=== PATIENT | female | born 1985 | race Caucasian/White ===

== ENCOUNTER 2024-12-18 11:44 | Outpatient (REF) | payer OTHER, SELFPAY ==
--- NOTE | ~2024-12-18 | XR_ITS ---
EXAMINATION: XR CERVICAL SPINE CLINICAL INFORMATION: NECK PAIN COMPARISON: None available. TECHNIQUE: 3 views of the cervical spine were obtained. FINDINGS: Endocervical junction is intact. No acute cortical disruption or gross malalignment. No lytic or blastic lesions. Upper airway is patent. XR/XR cervical spine 3V IMPRESSION: No acute fracture or listhesis. Negative exam. Electronically signed by: Hunter Skelton MD 12/18/2024 03:49 PM EST
[2024-12-18 12:40] LABS: MANUAL DIFF FLAG NO
--- OUTSIDE RECORDS SUMMARY | 2024-12-18 13:04 | XMS_ITS ---
Author Name [facility] Organization Unknown History of Medication Use Medication Directions Dispensed Refills Start Date End Date Stat nitrofurantoin, macrocrystal-monohyd rate, (MACROBID) 100 MG capsule Take 1 capsule (100 mg total) by mouth daily. 11/18/2020 active Lo Loestrin Fe 1 mg-10 mcg (24)/10 mcg (2) tablet Take 1 tablet every day by oral route. 03/20/2019 06/24/2020 completed Tegretol XR 200 mg tablet,extended release four times a day active omeprazole 10 mg capsule,delayed release Take 2 capsules every day by oral route. 07/24/2019 completed amitriptyline 75 mg tablet Take 1 tablet every day by oral route. 10/11/2023 active Macrodantin 50 mg capsule take one capsule before and after intercourse. 11/17/2022 active betamethasone valerate 0.1 % topical ointment apply a pea sized amount to vulva as shown MWF 03/04/2018 07/24/2019 completed Allergies Allergen Reaction Severity Comment Documented Date Source Statu s SUBSTANCE WITH SULFONAMIDE STRUCTURE AND ANTIBACTERIAL MECHANISM OF ACTION (SUBSTANCE) hives moderate [facility] NO KNOWN ALLERGY (SITUATION) 09/29/2013 [facility] completed BACTRIM Hives [facility] Problems Problem Status Onset Date Problem Type Date of Resoluti on Source Herpes simplex type 1 infection active 2018-04-25 ProblemAct [facility] Migraine active 2013-04-18 ProblemAct [facility] Vulvodynia active 2013-04-18 ProblemAct [facility] Anemia active 2024-09-18 ProblemAct [facility] Irritable bowel syndrome active 2013-04-18 ProblemAct [facility] 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
--- OUTSIDE RECORDS SUMMARY | 2024-12-18 13:04 | XMS_ITS | Data Portability ---
Author Organization [place] - [facility], [facility] Address [id number] [place] [address] Care Team Providers Care Chief Underwriter Name Role Phone SHASHI MUNIZ Primary Care Provider DEE CALIXTO Referring Provider Assessment No assessment recorded. Plan of Treatment Reminders Order Date Submit Date Provider Last Modified By Organization Details Last Modified Time Details Appointments ANNUAL NEWS CAMERAMAN 20 2024 10:30A M Sheila Leger MD Not available Not available Not available Lab [facility]ell wet prep 2022 023 [email or web address] In-Office Order, Internal Use Only DO Not Attach Compendium DO Not Attach Compendium, Do Not Delete/merge, [id number] 09/06/2023 14:41:42 wet mount, vaginal 2022 023 [email or web address] In-Office Order, Internal Use Only DO Not Attach Compendium DO Not Attach Compendium, Do Not Delete/merge, [id number] 09/06/2023 14:41:42 whiff test, vaginal fluid 2022 023 [email or web address] In-Office Order, Internal Use Only DO Not Attach Compendium DO Not Attach Compendium, Do Not Delete/merge, [id number] 09/06/2023 14:41:42 ph, vaginal fluid 2022 023 [email or web address] In-Office Order, Internal Use Only DO Not Attach Compendium DO Not Attach Compendium, Do Not Delete/merge, [id number] 09/06/2023 14:41:42 urinalysi s, dipstick 2022 023 [email or web address] In-Office Order, Internal Use Only DO Not Attach Compendium DO Not Attach Compendium, Do Not Delete/merge, [id number] 09/06/2023 14:41:42 cornell wet prep 2022 023 [email or web address] In-Office Order, Internal Use Only DO Not Attach Compendium DO Not Attach Compendium, Do Not Delete/merge, [id number] 10/11/2023 12:05:01 wet mount, vaginal 2022 023 [email or web address] In-Office Order, Internal Use Only DO Not Attach Compendium DO Not Attach Compendium, Do Not Delete/merge, [id number] 10/11/2023 12:04:58 whiff test, vaginal fluid 2022 023 rberke In-Office Order, Internal Use Only DO Not Attach Compendium DO Not Attach Compendium, Do Not Delete/merge, [id number] 10/11/2023 12:04:58 ph, vaginal fluid 2022 023 [email or web address] In-Office Order, Internal Use Only DO Not Attach Compendium DO Not Attach Compendium, Do Not Delete/merge, [id number] 10/11/2023 12:04:58 cornell wet prep 2022 023 [email or web address] In-Office Order, Internal Use Only DO Not Attach Compendium DO Not Attach Compendium, Do Not Delete/merge, [id number] 10/25/2023 12:18:31 wet mount, vaginal 2022 023 [email or web address] In-Office Order, Internal Use Only DO Not Attach Compendium DO Not Attach Compendium, Do Not Delete/merge, [id number] 10/25/2023 12:18:33 whiff test, vaginal fluid 2022 023 [email or web address] In-Office Order, Internal Use Only DO Not Attach Compendium DO Not Attach Compendium, Do Not Delete/merge, [id number] 10/25/2023 12:18:34 ph, vaginal fluid 2022 023 [email or web address] In-Office Order, Internal Use Only DO Not Attach Compendium DO Not Attach Compendium, Do Not Delete/merge, [id number] 10/25/2023 12:18:36 cornell wet prep 2023 024 [email or web address] In-Office Order, Internal Use Only DO Not Attach Compendium DO Not Attach Compendium, Do Not Delete/merge, [id number] 02/28/2024 12:36:42 wet mount, vaginal 2023 024 [email or web address] In-Office Order, Internal Use Only DO Not Attach Compendium DO Not Attach Compendium, Do Not Delete/merge, [id number] 02/28/2024 12:36:37 whiff test, vaginal fluid 2023 024 rberke In-Office Order, Internal Use Only DO Not Attach Compendium DO Not Attach Compendium, Do Not Delete/merge, [id number] 02/28/2024 12:36:36 ph, vaginal fluid 2023 024 [email or web address] In-Office Order, Internal Use Only DO Not Attach Compendium DO Not Attach Compendium, Do Not Delete/merge, [id number] 02/28/2024 12:36:37 urinalysi s, dipstick 2023 024 [email or web address] In-Office Order, Internal Use Only DO Not Attach Compendium DO Not Attach Compendium, Do Not Delete/merge, [id number] 09/18/2024 11:14:06 Referral pelvic floor therapy referral 2022 023 [facility], [address] [place] [address], [place], [address], 11/25/2023 16:29:05 Procedures None recorded. Surgeries None recorded. Imaging None recorded. Medication Orders fluconazo le 150 mg tablet 2022 023 [facility] #[id number], [address] [place], [address], 10/11/2023 11:14:47 amitripty line 10 mg tablet 2022 023 [facility]arm[facility] #[id number], [address] [place], [address], 10/25/2023 11:10:11 amitripty line 50 mg tablet 2022 023 [id number] [address] [place], [address], 10/25/2023 11:10:12 [facility] line 75 [id number] [address] [place], [address], 02/28/2024 12:36:04 amitripty line 10 mg tablet 2023 024 [id number] [address] [place], [address], 02/28/2024 12:36:39 amitripty line 50 mg tablet 2023 024 [id number] [address] [place], [address], 02/28/2024 12:36:39 amitripty line 10 mg tablet 2023 024 [id number] [address] [place], [address], 09/18/2024 11:14:11 Patient TargetsNo targets recorded. Patient Instructions Encounter Date Encounter Id Patient Instructions Last Modified By Organization Details Last Modified Time 09/06/2023 [id number] vulvar pain: car e instructions rberke Not available 09/06/2023 14:41:42 02/28/2024 [id number] vulvar pain: car e instructions rberke Not available 02/28/2024 12:36:36 09/18/2024 [id number] vulvar pain: car e instructions rberke Not available 09/18/2024 11:14:06 heavy menstrual periods: care instructions rberke Not available 09/18/2024 11:14:06 Reason for Referral Pelvic Floor Therapy Referra l for Muscular hypertonicity Referring Physician: Zander Schwartz, [facility] ADMINISTRATOR, Encounter Date: 10/25/2023 Results Created Date Observation Date Name Description Value Unit Range Abnormal Flag Note LastModifiedBy Organization Detail LastModifiedTime 09/06/2009/06/2023 ph, vagin al fluid Vaginal pH 4.5 Not Available In-Offi ce Order Internal Use Only DO Not Attach Compendium DO Not Attach Compendium, Do Not Delete/merge, [id number] 09/06/2023 14:35:55 09/06/2009/06/2023 whiff test, vagin al fluid Result negati ve Not Available In-Office Order Internal Use Only DO Not Attach Compendium DO Not Attach Compendium, Do Not Delete/merge, [id number] 09/06/2023 14:35:55 09/06/2009/06/2023 wet mount , vagin al Wet Mount, Vaginal Normal epithe lial cells. rare wbcs. Not Available In-Office Order Internal Use Only DO Not Attach Compendium DO Not Attach Compendium, Do Not Delete/merge, [id number] 09/06/2023 14:35:54 09/06/2009/06/2023 cornell wet prep Yeast Presen t Not Available In-Office Order Internal Use Only DO Not Attach Compendium DO Not Attach Compendium, Do Not Delete/merge, [id number] 09/06/2023 14:35:54 09/06/2009/06/2023 urina lysis , dipst ick Interpretati on negati ve Not Available In-Office Order Internal Use Only DO Not Attach Compendium DO Not Attach Compendium, Do Not Delete/merge, [id number] 09/06/2023 14:07:37 09/06/2009/06/2023 urina lysis , dipst ick Leukocytes Negati ve Not Available In-Office Order Internal Use Only DO Not Attach Compendium DO Not Attach Compendium, Do Not Delete/merge, [id number] 09/06/2023 14:07:37 09/06/2009/06/2023 urina lysis , dipst ick Nitrite negati ve Not Available In-Office Order Internal Use Only DO Not Attach Compendium DO Not Attach Compendium, Do Not Delete/merge, [id number] 09/06/2023 14:07:37 09/06/2009/06/2023 urina lysis , dipst ick Urobilinogen Normal : 0.2 mg/dl Not Available In-Office Order Internal Use Only DO Not Attach Compendium DO Not Attach Compendium, Do Not Delete/merge, [id number] 09/06/2023 14:07:37 09/06/2009/06/2023 urina lysis , dipst ick Protein Negati ve Not Available In-Office Order Internal Use Only DO Not Attach Compendium DO Not Attach Compendium, Do Not Delete/merge, [id number] 09/06/2023 14:07:37 09/06/2009/06/2023 urina lysis , dipst ick pH 5.0 Not Available In-Office Order Internal Use Only DO Not Attach Compendium DO Not Attach Compendium, Do Not Delete/merge, [id number] 09/06/2023 14:07:37 09/06/2009/06/2023 urina lysis , dipst ick Blood Negati ve Not Available In-Office Order Internal Use Only DO Not Attach Compendium DO Not Attach Compendium, Do Not Delete/merge, [id number] 09/06/2023 14:07:37 09/06/2009/06/2023 urina lysis , dipst ick Specific [place] 1.000 Not Available In-Off ice Order Internal Use Only DO Not Attach Compendium DO Not Attach Compendium, Do Not Delete/merge, [id number] 09/06/2023 14:07:37 09/06/2009/06/2023 urina lysis , dipst ick Ketone Negati ve Not Available In-Office Order Internal Use Only DO Not Attach Compendium DO Not Attach Compendium, Do Not Delete/merge, [id number] 09/06/2023 14:07:37 09/06/2009/06/2023 urina lysis , dipst ick Bilirubin Negati ve Not Available In-Office Order Internal Use Only DO Not Attach Compendium DO Not Attach Compendium, Do Not Delete/merge, [id number] 09/06/2023 14:07:37 09/06/2009/06/2023 urina lysis , dipst ick Glucose Negati ve Not Available In-Office Order Internal Use Only DO Not Attach Compendium DO Not Attach Compendium, Do Not Delete/merge, [id number] 09/06/2023 14:07:37 09/06/2009/06/2023 urina lysis , dipst ick Appearance Clear Not Available In-Offi ce Order Internal Use Only DO Not Attach Compendium DO Not Attach Compendium, Do Not Delete/merge, [id number] 09/06/2023 14:07:37 09/06/2009/06/2023 urina lysis , dipst ick Color Yellow Not Available In-Office Order Internal Use Only DO Not Attach Compendium DO Not Attach Compendium, Do Not Delete/merge, [id number] 09/06/2023 14:07:37 10/11/2010/11/2023 ph, vagin al fluid Vaginal pH 4.5 Not Available In-Offi ce Order Internal Use Only DO Not Attach Compendium DO Not Attach Compendium, Do Not Delete/merge, [id number] 10/11/2023 11:56:30 10/11/2010/11/2023 whiff test, vagin al fluid Result negati ve Not Available In-Office Order Internal Use Only DO Not Attach Compendium DO Not Attach Compendium, Do Not Delete/merge, [id number] 10/11/2023 11:56:29 10/11/2010/11/2023 wet mount , vagin al Wet Mount, Vaginal normal lactob acilli and normal epithe lial cells. Not Available In-Office Order Internal Use Only DO Not Attach Compendium DO Not Attach Compendium, Do Not Delete/merge, [id number] 10/11/2023 11:56:27 10/11/2010/11/2023 cornell wet prep Yeast Absent Not Available In-Office Order Internal Use Only DO Not Attach Compendium DO Not Attach Compendium, Do Not Delete/merge, [id number] 10/11/2023 11:56:26 10/25/2010/25/2023 ph, vagin al fluid Other 4.0 Not Available In-Office Order Internal Use Only DO Not Attach Compendium DO Not Attach Compendium, Do Not Delete/merge, [id number] 10/25/2023 12:02:33 10/25/20 23 10/25/2023 whiff test, vagin al fluid Result negati ve Not Available In-Office Order Internal Use Only DO Not Attach Compendium DO Not Attach Compendium, Do Not Delete/merge, [id number] 10/25/2023 12:02:32 10/25/20 23 10/25/2023 wet mount , vagin al Wet Mount, Vaginal WS with normal lactob acilli and normal epithe lial cells. Not Available In-Office Order Internal Use Only DO Not Attach Compendium DO Not Attach Compendium, Do Not Delete/merge, [id number] 10/25/2023 12:02:32 10/25/20 23 10/25/2023 cornell wet prep Hyphae Absent Not Available In-Office Order Internal Use Only DO Not Attach Compendium DO Not Attach Compendium, Do Not Delete/merge, [id number] 10/25/2023 12:02:31 10/25/20 23 10/25/2023 cornell wet prep Yeast Absent Not Available In-Office Order Internal Use Only DO Not Attach Compendium DO Not Attach Compendium, Do Not Delete/merge, [id number] 10/25/2023 12:02:31 02/28/20 24 02/28/2024 ph, vagin al fluid Vaginal pH 4.5 Not Available In-Offi ce Order Internal Use Only DO Not Attach Compendium DO Not Attach Compendium, Do Not Delete/merge, [id number] 02/28/2024 12:30:36 02/28/20 24 02/28/2024 whiff test, vagin al fluid Result negati ve Not Available In-Office Order Internal Use Only DO Not Attach Compendium DO Not Attach Compendium, Do Not Delete/merge, [id number] 02/28/2024 12:30:36 02/28/20 24 02/28/2024 wet mount , vagin al Wet Mount, Vaginal normal lactob acilli and normal epithe lial cells. Not Available In-Office Order Internal Use Only DO Not Attach Compendium DO Not Attach Compendium, Do Not Delete/merge, [id number] 02/28/2024 12:30:36 02/28/20 24 02/28/2024 cornell wet prep Yeast Absent Not Available In-Office Order Internal Use Only DO Not Attach Compendium DO Not Attach Compendium, Do Not Delete/merge, [id number] 02/28/2024 12:30:36 09/18/20 24 09/18/2024 urina lysis , dipst ick Interpretati on negati ve Not Available In-Office Order Internal Use Only DO Not Attach Compendium DO Not Attach Compendium, Do Not Delete/merge, [id number] 09/18/2024 10:29:48 09/18/20 24 09/18/2024 urina lysis , dipst ick Leukocytes Negati ve Not Available In-Office Order Internal Use Only DO Not Attach Compendium DO Not Attach Compendium, Do Not Delete/merge, 09/18/2024 10:29:48 09/18/20 24 09/18/2024 urina lysis , dipst ick Nitrite negati ve Not Available In-Office Order Internal Use Only DO Not Attach Compendium DO Not Attach Compendium, Do Not Delete/merge, [id number] 09/18/2024 10:29:48 09/18/20 24 09/18/2024 urina lysis , dipst ick Urobilinogen Normal : 0.2 mg/dl Not Available In-Office Order Internal Use Only DO Not Attach Compendium DO Not Attach Compendium, Do Not Delete/merge, [id number] 09/18/2024 10:29:48 09/18/20 24 09/18/2024 urina lysis , dipst ick Protein Negati ve Not Available In-Office Order Internal Use Only DO Not Attach Compendium DO Not Attach Compendium, Do Not Delete/merge, [id number] 09/18/2024 10:29:48 09/18/20 24 09/18/2024 urina lysis , dipst ick pH 5.0 Not Available In-Office Order Internal Use Only DO Not Attach Compendium DO Not Attach Compendium, Do Not Delete/merge, [id number] 09/18/2024 10:29:48 09/18/20 24 09/18/2024 urina lysis , dipst ick Blood Negati ve Not Available In-Office Order Internal Use Only DO Not Attach Compendium DO Not Attach Compendium, Do Not Delete/merge, [id number] 09/18/2024 10:29:48 09/18/20 24 09/18/2024 urina lysis , dipst ick Specific [place] 1.000 Not Available In-Off ice Order Internal Use Only DO Not Attach Compendium DO Not Attach Compendium, Do Not Delete/merge, [id number] 09/18/2024 10:29:48 09/18/20 24 09/18/2024 urina lysis , dipst ick Ketone Negati ve Not Available In-Office Order Internal Use Only DO Not Attach Compendium DO Not Attach Compendium, Do Not Delete/merge, [id number] 09/18/2024 10:29:48 09/18/20 24 09/18/2024 urina lysis , dipst ick Bilirubin Negati ve Not Available In-Office Order Internal Use Only DO Not Attach Compendium DO Not Attach Compendium, Do Not Delete/merge, [id number] 09/18/2024 10:29:48 09/18/20 24 09/18/2024 urina lysis , dipst ick Glucose Negati ve Not Available In-Office Order Internal Use Only DO Not Attach Compendium DO Not Attach Compendium, Do Not Delete/merge, [id number] 09/18/2024 10:29:48 09/18/20 24 09/18/2024 urina lysis , dipst ick Appearance Clear Not Available In-Offi ce Order Internal Use Only DO Not Attach Compendium DO Not Attach Compendium, Do Not Delete/merge, [id number] 09/18/2024 10:29:48 09/18/20 24 09/18/2024 urina lysis , dipst ick Color Yellow Not Available In-Office Order Internal Use Only DO Not Attach Compendium DO Not Attach Compendium, Do Not Delete/merge, [id number] 09/18/2024 10:29:48 10/20/20 23 US, trans vagin al No observ ation record ed. JOSE Not Available 2022 10:39:33 Result Notes None recorded. 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 DO NOT USE DO NOT USE null, [place] - [facility] 8 16:47:01 Anemia 991650092 Active 2023 Shelley Agrawal null, [facility] 4 10:21:09 Migraine 65141605 Active 2012 Maureen Neil null, [facility] 6 09:17:57 Vulvodynia 737057419 Active 2012 SHEILA LEGER MD [address] [facility], [address] [place] [address], [phone] , [facility] 2 15:23:38 Irritable bowel syndrome 87083122 Active 2012 Maureen Jolynn [facility], [facility] 6 09:17:57 Problem Notes None recorded. Procedures Surgical History Date Name Laterality Status Provider Name and Address Organization Details Recorded Time 08/18/20 22 Date of Last Pap Smear completed ZANDER SCHWARTZ CNM [address] [place] [address], [address] [place] [address], [phone], [facility] 08/24/2022 14:01:41 03/11/20 21 Saline Infusion Sonogram (SIS) completed SHEILA LEGER MD [address] [place] [address], [phone], [facility] 03/11/2021 13:58:03 03/19/20 20 Telemedicine Visit completed SHEILA LEGER MD [address] [place] [address], [phone], [facility] 03/19/2020 12:29:16 12/15/19 19 section completed DO NOT USE DO NOT USE [facility] 03/20/2019 11:24:13 03/15/20 18 Date of Last Colonoscopy completed DO NOT USE DO NOT USE [facility] 04/25/2018 16:08:09 03/15/20 18 Colonoscopy completed DO NOT USE DO NOT USE [facility] 04/25/2018 16:09:13 Imaging Results Imaging Date Name Status LastModified by Organization Details LastModified Time 10/20/2023 US, transvaginal completed JOSE Informat ion not available 11/01/2023 10:39:33 Procedure Notes None recorded. Medical Equipment None Reported. Allergies Allergen ID Allergen Name Allergen Category Reaction Reaction Severity Criticality Documentation Date Start Date Code Code System Note Provider Name and Address Organization Details Recorded Time 2865442 Substance with sulfonami de structure and antibacte rial mechanism of action (substanc e) medicatio n hives moderate Not available 11/23/2017 32936 8003 SNOMED Addie Morel [facility], [facility] 8 08:32:41 [id number] Bactrim medicatio n hives moderate Not available 11/23/2017 88507 [address] Rx[address] [facility] 8 08:33:07 258206 No known allergy (situatio n) Not available Not available Not available Not available 04/23/20152012 77360 6003 SNOMED DO NOT USE DO NOT USE [facility], [facility] 7 09:37:55 Medications Name Sig Start Date Stop Date Status Note LastModified by Organization Details LastModified Time betametha sone valerate 0.1 % topical ointment apply a pea sized amount to vulva as shown MWF 07/24 completed Not Available Not Available Not Available amitripty line 75 mg tablet Take 1 tablet every day by oral route. 2022 active Not Available Not Available Not Avai lable Tegretol XR 200 mg tablet,ex tended release four times a day active Not Available Not Available No t Available Detrol LA 4 mg capsule,e xtended release Take 1 capsule every day by oral route. 04/25 completed Not Available Not Available Not Available amitripty line 50 mg tablet TAKE 1 TABLET BY MOUTH EVERYDAY AT BEDTIME 2023 active Not Available Not Available Not Avai lable amitripty line 25 mg tablet TAKE 1 TABLET BY MOUTH EVERY DAY active Not Available Not Available No t Available omeprazol e 10 mg capsule,d elayed release Take 2 capsules every day by oral route. 07/24 completed Not Available Not Available Not Available amitripty line 10 mg tablet Take 4 tablets every day by oral route. 2023 active Not Available Not Available Not Avai lable Macrodant in 50 mg capsule take one capsule before and after intercou rse. 2022 active prn Not Available Not Available Not Avai lable norethind keenan (contrace ptive) 0.35 mg tablet Take 1 tablet every day by oral route. 07/24 completed Not Available Not Available Not Available vitamin E 268 mg (400 unit) capsule Take 1 capsule twice a day by oral route. 08/05 completed Not Available Not Available Not Available Probiotic active Not Available Not Oanh ilable Not Available Jonelle 3 mg-0.03 mg tablet TAKE 1 TABLET BY ORAL ROUTE EVERY DAY 11/02 completed PRESCRIB ED ELSEWHER E Not Available Not Available Not Available Lo Loestrin Fe 1 mg-10 mcg (24)/10 mcg (2) tablet Take 1 tablet every day by oral route. 06/24 completed Not Available Not Available Not Available Vitals Date Recorded Body height Body mass index (BMI) Body weight Systolic blood pressure Diastolic blood pressure Provider Name and Address Organization Details Last Updated DateTime 09/06/2023 162.56 cm 28.5 kg/m2 97653.33 g 110 mm[Hg] 74 mm[Hg] [facility] 14:05:51 Date Recorded Body height Provider Name an d Address Organization Details Last Updated DateTime 10/11/2023 162.56 cm [facility] 10/11/2023 11:14:00 Date Recorded Body height Body mass index (BMI) Body weight Systolic blood pressure Diastolic blood pressure Provider Name and Address Organization Details Last Updated DateTime 10/25/2023 162.56 cm 28.5 kg/m2 84831.33 g 126 mm[Hg] 70 mm[Hg] Lesley rothman [facility] 11:18:33 Date Recorded Body height Provider Name an d Address Organization Details Last Updated DateTime 09/18/2024 162.56 cm Shelley Nghia [place] - [facility] 09/18/2024 10:08:16 Social History Question Answer Notes LastModified by Organizat ion Details LastModified Time Tobacco Smoking Status Never Smoker Maureen Neil vivian, [place] - [facility] 03/16/2016 09:37:45 What Is Your Level Of Alcohol Consumption? Occasional Information not available 09/30/2015 Is Blood Transfusion Acceptable In An Emergency? Yes [email or web address] Information not available 08/05/2020 What Is Your Level Of Caffeine Consumption? Moderate Information not available 09/18/2024 Concerns About Meeting Basic Needs (food, Housing, Heat, Etc)? No Information not available 08/05/2020 In The 14 Days Before Symptom Onset, Have You Had Close Contact With A Laboratory-confir med COVID-19 While That Case Was Ill? No Information not available 08/11/2021 In The 14 Days Before Symptom Onset, Have You Had Close Contact With A Person Who Is Under Investigation For COVID-19 While That Person Was Ill? No Information not available 08/11/2021 Have You Been To An Area Known To Be High Risk For COVID-19? No Information not available 08/11/2021 Are You Currently Employed? Yes Information not available 08/17/2022 Do You Reside In Or Have You Traveled To An Area Where Ebola Virus Transmission Is Active? 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 No Information no t available 08/17/2022 Have You Recently Or Are You Planning To Travel To An Area With Zika Virus? No [email or web address] Information not available 08/17/2022 Do You Have Any Children? Yes [email or web address] Information not available 08/05/2020 Does Your Partner Physically Hurt You Or Threaten To Hurt You? No Information not available 07/24/2019 Has Your Partner Forced You To Have Sex Or Perform Sex Acts When You Did Not Want To? No Information not available 07/24/2019 Does Your Partner Insult, Scream At Or Talk Down To You? No Information not available 07/24/2019 Does Your Partner Control You Or Any Part Of Your Life? No Information not available 07/24/2019 Are You Afraid Of Your Partner? No Information not available 07/24/2019 Drug Use? No Information no t available 09/30/2015 Do You Feel Safe At Home? Yes Information not available 07/24/2019 What Was The Date Of Your Most Recent Tobacco Screening? 09/18/2024 Information not available 09/18/2024 How Many Children Do You Have? 2 [email or web address] Information not available 08/05/2020 Have You Ever Been Counseled For Unhealthy Alcohol Use? No Information not available 09/18/2024 Do You Use Protection During Sex? No Information not available 09/18/2024 Are You Sexually Active? Yes [email or web address] Information not available 08/17/2022 How Much Tobacco Do You Smoke? No Information not available 07/24/2019 Do You Feel Stressed (tense, Restless, Nervous, Or Anxious, Or Unable To Sleep At Night)? [id number] Information not available 08/11/2021 Have You Recently Traveled Abroad? No Information not available 09/18/2024 Sex: Unknown Functional Status Question Answer Note LastModified by Organizat ion Details LastModified Time What is your exercise level? Occasional Information not available 08/11/2021 Mental Status Question Answer Note LastModified by Organization D etails LastModified Time Do you have difficulty concentrating, remembering or making decisions? No [email or web address] Information no t available 08/17/2022 Family History Relationship Description Onset Age of this Age Resolved Age Notes LastModified by Organization Details LastModified Time Father No current problems or disability [email or web address] Not available 07/24 11:46:54 Mother No current problems or disability [email or web address] Not available 07/24 11:46:54 Medical History Condition Response Other N *No Diseases or Conditions N Breast Cancer N Blood clots N Benign breast disease N Colon cancer N Lung Disease N Depression N Defects or Inherited Disease N Anesthesia Complications N Headaches/Migraines Y Have you ever been on isolation N Anxiety Disorder N HSV N Arthritis N Infertility N Interstitial Cystitis N Abnormal pap N Acid Reflux (GERD) N Cancer N Stroke N Endometriosis N Fibromyalgia N Spina Bifida N HIV N Heart Problems N Sexual Dysfunction N Autoimmune disorder N Thyroid Problems N Kidney or Bladder Problems N GI Problems Y Eating Disorder N Anemia Y Multiple Sclerosis N Psychiatric Illness N Diabetes N Ovarian Cancer N Blood Transfusions N Bladder disease N History of MRSA N Abnormal Uterine Bleeding N Hyperlipidemia N BrCa positive N Abuse/Domestic Violence N Diverticulitis N Asthma N Hepatitis N Hypertension N Osteoporosis N Thrombophilias N Gynecological History Statement/Question Response Benign Breast Disease N Flow Heavy Date of Last Mammogram Breast Biopsy N Date of LMP 08/22/2024 IPV Screen Done 09/18/2024 [facility] Biopsy N Post Menopausal Bleeding N STIs/STDs N PID N Cervical Cancer N History of Endometrial Biopsy? N BrCa gene tested? N Ovarian Cancer N Date of Last Colonoscopy 03/15/2018 Breast Cancer N Bladder Problems N Abnormal Uterine Bleeding N Last HPV Result Negative Abnormal Pap N Infertility N Breast Ultrasound N Leep N Sexual Orientation heterosexual HPV Vaccine N Duration of Flow (days) 7 Endometriosis N Age at Menarche 11 Current Control Method BCPs Age at First Child 33 Fibroids N Uterine Cancer N Current Control Method Condoms Frequency of Cycle (Q days) 28 Mammogram Required? N Sexually Active? Y Sexual Problems? N Date of Last Pap Smear 08/18/2022 Hormone Replacement Therapy N Obstetrics History GPAL:G 2 P 0 0 0 2 Type Value Multiple Births 1 Full Term 0 Induced 0 Spontaneous 0 Premature 0 Living 2 Ectopics 0 Total 2 Immunizations Vaccine Type Date Status Note Provider Nam e and Address Organization Details Recorded Time COVID-19, mRNA, LNP-S, PF, 30 mcg/0.3 mL dose 12/28/2020 completed Lenka Argueta [facility] [place] [place] [facility] 08/11/2021 08:56:30 Past Encounters Encounter ID Performer Location Encounter Start Date Encounter Closed Date Diagnosis/Indication Diagnosis SNOMED-CT Code Diagnosis ICD10 Code Diagnosis Note [id number] [facility] [address] [place] [address] 08/23/2012 00:00:00 [id number] [facility] [address] [place] [address] 09/29/2013 00:00:00 [id number] [facility] [address] [place] [address] 07/30/2014 00:00:00 [id number] [facility] [address] [place] [address] 04/01/2015 00:00:00 [id number] Maureen MICHAUD2 [address] [place] [address] 09/30/2015 12:06:45 09/30/2015 13:59:46 Vulvodynia [id number] N94.819 Discussed medication s for vulvodynea . Patient is doing well on 15mg of amitriptyl ine per day. Advised not to wean down prior to the new year. After, can decrease to 10mg per night. Patient to call and be checked for any flares prior to f/u visit at the end of December. [id number] Maureen MICHAUD2 [address] [place] [address] 03/16/2016 09:14:24 03/16/2016 10:31:17 Vulvodynia 477738704 N94.819 Discussed medication s for vulvodynea . Patient is engaged to be this coming June. Extensive discussion about trying to wean off elavil prior to attempting conceeptio n, but also reviewed that the dose she is at is extremely small. Risk of drugs in states that even though it is rated Cm buy manufactur er that a majority of studies say that this medication is relatively safe in . 15 minutes of counseling provided and no exam. [id number] SHEILA LEGER MD SHE2 [address] [place] [address] 10/05/2016 14:16:54 10/05/2016 15:28:21 Vulvodynia [id number] N94.819 Discussed trying to wean off elavil prior to attempting conception , but also reviewed that the dose she is at is extremely small and not likely to be of much concern. Risk of drugs in states that even though it is rated Cm buy manufactur er that a majority of studies say that this medication is relatively safe in . Discussed keeping on 5mg daily until mid November, then doing QOD for 4 weeks. To f/u visit in Mid December. 15 minutes of counseling provided with no exam during this encounter. [id number] SHEILA LEGER MD [facility] [address] [facility] [address] [place] [address] 04/26/2017 16:14:47 04/27/2017 10:51:42 Vulvodynia [id number] N94.819 Discussed medication s for vulvodynea . Patient declines to be on meds at present but would like a script to have just in case. also, long discussion of pre-concep tion vitamins and when to stop OCPs if she is going to try to conceive. 15 minutes encounter for counseling with no exam provided. Patient requests to f/u in 6 months. Informed that this would be totally optional if feeling well. [id number] SEHILA LEGER MD SHE1 [address] [facility] [place] [address] 11/02/2017 09:06:33 11/02/2017 11:11:15 Increased frequency of urination 419988309 R35.0 Vulvodynia [id number] N94 .819 Long discussion of patient's current symptoms and co-morbidi ties to her vulvodynia . Discussed medication s for vulvodynia . Patient declines to be on meds at present (since she will soon be trying to conceive). Discussion of pre-concep tion vitamins. Patient requests to f/u in 3 months. Informed that this would be totally optional if feeling well. If symptoms not improved in a few weeks, advised u/s of pelvis for further evaluation . 25 minutes spent on this encounter of which >50% was spent on counseling . Vaginal di scharge symptom 568885885 N89.8 Patient reassured that phase contrast microscopi c findings were normal. [id number] SHEILA LEGER MD SHE[facility] [address] [facility] [address] 11/23/2017 07:59:11 11/23/2017 09:28:46 Bladder muscle dysfunction - overactive 010251431 N32.81 discussed. Patient to keep urolog. Willing to try a course of detrol [place] to see if this improves. [id number] SHEILA LEGER MD [address] [place] [address] 12/21/2017 14:10:53 12/21/2017 15:02:32 Bladder muscle dysfunction - overactive 872824331 N32.81 discussed. UROLOG reviewed. Wants to continue Detrol. Advised to see urogyn for further evaluation since not feeling completely better. [id number] KANDIS SALINAS APRN SHE[address] [place] [address] 03/01/2018 13:21:36 03/01/2018 14:35:53 Vulvodynia 339953273 N94.819 Pre existing diagnosis Had done relatively well on Elavil. Subacute a nd chronic vulvitis 207873675 N76.3 Chronic inflammati on We will trial topcial steroid to see if it adds soemthing to her overall management Candidal vulvovaginitis 21151738 B37.3 [id number] SHEILA LEGER MD SHE[address] [place] [address] 03/22/2018 14:47:10 03/22/2018 16:15:41 Vulvodynia 257356630 N94.819 Long discussion of patient's current symptoms and co-morbidi ties to her vulvodynia . Additional ly, patient seems to be describing pain in additional multiple locations, which were not previously present in her past vulvodynea symptomato logy. Recent CT scan of abdomen and pelvis were negative along with a essentiall y normal lower back x-ray. Discussed a trial of medication s for vulvodynia . Patient currently uncomforta ble enough that she would like a trial of low dose amitriptyl ine. Encounter time lasted 25 minutes of which greater than 50% of the time was spent on counseling and the rest on exam. Patient was given adequate time to ask questions and seemed to demonstrat e an understand ing of the informatio n reviewed. Will F/u in 6 weeks. [id number] SHEILA LEGER MD SHE[address] [place] [address] 04/25/2018 15:57:20 04/25/2018 16:59:52 Vulvitis 25668366 N76.2 slit in right side of clitoral skin. HSV culture taken. Vulvodynia 675478997 N94 .819 N94.818 Doing extremely well on amitriptyl ine 10 mg. Symptoms are approximat chandni 85% improved. Still having some bladder symptoms and a feeling of pressure, but her sacral and low back pain have completely resolved. Will increase to 15 mg by taking 1.5 tabs of 10 mg of amitriptyl ine daily. F/u in 4 weeks. Encounter time lasted 25 minutes of which greater than 50% of the time was spent on counseling and the rest on exam. Patient was given adequate time to ask questions and seemed to demonstrat e an understand ing of the informatio n reviewed. [id number] SHEILA LEGER MD SHE1 [address] [facility] [address] 05/17/2018 10:14:59 05/17/2018 11:28:17 Vaginal discharge symptom 870538598 N89.8 Patient reassured that phase contrast microscopi c findings were normal. Vulvodynia 409384828 N94 .819 N94.818 Doing extremely well on amitriptyl ine 15 mg. Symptoms are approximat chandni 85% - 90% improved. Still having some bladder symptoms and a feeling of pressure, but her sacral and low back pain have almost completely resolved. Will continue with 15 mg by taking 1.5 tabs of 10 mg of amitriptyl ine daily. patient might also have clitorodyn ia will keep log and return in 6-8 weeks will track alleviatin g and aggravatin g sx's F/u in 6-8 weeks to review pain log. Encounter time lasted 25 minutes of which greater than 50% of the time was spent on counseling and the rest on exam. Patient was given adequate time to ask questions and seemed to demonstrat e an understand ing of the informatio n reviewed. [id number] SHEILA LEGER MD SHE1 [address] [facility] [address] 07/12/2018 09:01:07 07/12/2018 10:20:13 Vulvodynia 866230185 N94.818 Discussed medication s for vulvodynea . r/b discussed during and patient wishes to continue with her current regimen of amitriptyl ine 15 mg daily. Vaginal di scharge symptom 983002295 N89.8 Patient reassured that phase contrast microscopi c findings were normal. [id number] SHEILA LEGER MD SHE2 [address] [place] [address] 12/05/2018 10:35:21 12/05/2018 12:04:58 Vulvodynia 089043223 N94.818 Discussed medication s for vulvodynea . r/b discussed during and patient wishes to continue with her current regimen of amitriptyl ine 15 mg daily. May need to go up to 20 mg in post period. Will give Rx for that now. Encounter time lasted 15 minutes of which all of the time was spent on counseling regarding the etiology, and treatment of the identified problem(s) and no exam was performed at this visit. Patient was given adequate time to ask questions and seemed to demonstrat e an understand ing of the informatio n reviewed. [id number] SHEILA LEGER MD SHE2 [address] [place] [address] 03/20/2019 11:12:48 03/20/2019 12:12:11 Vulvodynia 521605317 N94.818 Discussed medication s for vulvodynea . r/b discussed during breast feeding (negligibl e) and patient wishes to continue with her current regimen of amitriptyl ine 15 mg daily. May need to go up to 20 mg if has a flare. Encounter time lasted 15 minutes of which all of the time was spent on counseling regarding the etiology, and treatment of the identified problem(s) and no exam was performed at this visit. Patient was given adequate time to ask questions and seemed to demonstrat e an understand ing of the informatio n reviewed. Initial pr escription of oral contraception 434101397 Z30.011 will start POP if interested while breast feeding. F/u in 3 months with annual. Vaginal di scharge symptom 920407760 N89.8 Patient reassured that phase contrast microscopi c findings were normal. [id number] SHEILA LEGER MD SHE2 [address] [place] [address] 07/24/2019 11:39:07 07/24/2019 12:34:02 Gynecologic examination 11738701 Z01.419 Depression screening 171 231382 Z13.31 Depression screening done. reviewed scored 0. Initial pr escription of oral contraception 582888325 Z30.011 Patient never started the POP, but wants to start a combinatio n pill when she stp[s breast feeding. 2 sample packages given. RTO in 3 months for OCP re-check. OCP consent form to be signed. R/B and alternativ es discussed. [id number] SHEILA LEGER MD SHE[address] [place] [address] 11/13/2019 11:47:47 11/13/2019 13:12:28 Vulvodynia 561435485 N94.819 N94.818 Discussed medication s for vulvodynea . Patient will up dose of amitriptyl ine to 25 mg daily. Additional ly, will start OCPs and f/u in 8 weeks to see how she is tolerating OCPs. Has 2 sample pkgs at home given from a previous visit. Encounter time lasted 15 minutes of which greater than 50% of the time was spent on counseling and the rest on exam. Patient was given adequate time to ask questions and seemed to demonstrat e an understand ing of the informatio n reviewed. [id number] SHEILA LEGER MD TEL_02_SH [facility] [address] [place] [address] 03/19/2020 10:25:43 03/19/2020 16:25:58 Mastodynia of bilateral breasts [id number] 1741150 N64.4 doubt breast disease since it is bilateral. Advised that most likely related to musculoske letal (lifting up heavy twins) or hormonal. Will obtain a PRL and ESR to check. Had a CBC which was normal by hose finisher in [place]. Patient has an appt with breast clinic for a second opinion. Advised to send us a copy of her consultati on. Advised f/u in May. Surveillan ce of oral contraception 705894223 Z30.41 Doing well. Had normal BP check according to patient with hose finisher in [place] within the last month. Vulvodynia 023708250 N94 .818 Discussed medication s for vulvodynea . Patient is doing well on amitriptyl ine to 25 mg daily. Encounter time lasted 20 minutes, using the [employer] video platform, of which greater than 50% of the time was spent on counseling and the rest on exam. Patient was given adequate time to ask questions and seemed to demonstrat e an understand ing of the informatio n reviewed. [id number] SHEILA LEGER MD SHE2 [address] [place] [address] 06/24/2020 13:20:00 06/25/2020 12:14:08 Vulvodynia 651125605 N94.818 Discussed medication s for vulvodynea . Patient is doing well on amitriptyl ine to 25 mg daily. but still having some mild symptoms. Wants to go up to 30 mg. Contracept ion care management 885674954 Z30.9 discussed multiple options for contracept ion. Patient to decide. ? mirena, but will use condoms for now. [id number] SHEILA LEGER MD SHE2 [address] [place] [address] 07/01/2020 11:54:50 07/01/2020 14:15:12 Dysuria 26183730 R30.9 No evidence of UTI or urethritis . Vulvodynia 726669986 N94 .818 Discussed medication s for vulvodynea . Patient had a flare after sexual activity. Is slightly improved but symptoms are still persisting at a low level. Advised adjusting amitriptyl ine to 35 mg. Has RX for this. Microscopi c exam of discharge was negative. No evidence of a urethritis noted. F/u in 2 months. [id number] SHEILA LEGER MD SHE2 [address] [place] [address] 08/05/2020 09:15:32 08/05/2020 17:00:42 Gynecologic examination 91576557 Z01.419 Depression screening 171 515010 Z13.31 Depression screening done. reviewed scored 0. Vulvodynia 022704202 N94 .818 Discussed medication s for vulvodynia . Patient had a flare after sexual activity. Is slightly improved but symptoms are still persisting at a low level. Advised adjusting amitriptyl ine to 50 mg at last visit. Starting to feel some improvemen t. Has RX for this. Microscopi c exam of discharge was negative. No evidence of a urethritis noted. F/u in 2 months. [id number] SHEILA LEGER MD SHE2 [address] [place] [address] 12/02/2020 14:44:36 12/03/2020 11:28:57 Vulvodynia 689926412 N94.818 Discussed medication s for vulvodynia . Patient had a flare th at [facility] ng time. Had urethral dilitation s with Urogyn. Some improvemen t. Scheduled for cystoscopy soon. Has moderate anxiety. Had PCP order an abdominal and pelvic CT scan with and w/o contrast which was essentiall y normal. Has vulvodynia and probably IC. will await cystoscopy results and if negative, will obtain a pelvic u/s. Suggested pelvic message. Most sensitive in area of pelvic bony structures at 2 and 10 o'clock. Advised to continue with amitriptyl ine at 60 mg at last visit. Starting to feel some improvemen t. Has RX for this. Microscopi c exam of discharge was negative. No evidence of a urethritis noted. F/u in 2 months and will keep pain symptom log for now. Total encounter time was 38 minutes of which 33 minutes of counseling and 3 minutes of documentat ion Vaginal di scharge symptom 161637675 N89.8 Patient reassured that phase contrast microscopi c findings were normal. [id number] SHEILA LEGER MD SHE2 [address] [place] [address] 02/03/2021 15:11:05 02/03/2021 16:38:06 Vulvodynia 092456774 N94.818 Discussed medication s for vulvodynia . Still taking amitripyli ne at 60 mg daily. Has moderate anxiety. Had PCP order an abdominal and pelvic CT scan with and w/o contrast which both were essentiall y normal. Recent cystoscopy and cultures for myco and ureaplasma were both negative. Recent pelvic u/s showed a slightly irregular endometriu m and since patient has heavy menses will explore further with an SIS. Advised to continue with amitripyli ne at 60 mg at last visit. Patient feels some improvemen t. Has RX for this. Discussed treatment options for possibilit y of endometrio sis which included Orilissa, strong progestins , or Dx laparoscop y. Encounter time lasted (44 minutes) total with moderate decision making and which included the following times: reviewing chart/hist ory (7 minutes), patient exam (0 minutes), counseling patient and reviewing patient's pain log (30 minutes); documentin g in patient record (7 minutes) ordering labs and/or Rx through pharmacy (0 minutes). Start time: 4:00 pm, Stop time: 4:44 pm. Menorrhagia 218360666 N9 2.0 proceed with SIS for evaluation of irregular endometriu m. [id number] SHEILA LEGER MD SHE[address] [place] [address] 03/11/2021 11:16:36 03/11/2021 12:46:03 Menorrhagia 718993350 N92.0 proceed with SIS for evaluation of irregular endometriu m and spotting before and after menses. Endometria l cavity appears normal. Will observe for now and if persistent , will consider EMBx. [id number] SHEILA LEGER MD SHE[address] [place] [address] 08/11/2021 08:47:49 08/11/2021 09:37:36 Gynecologic examination 96593175 Z01.411 BW to monitor meds. Patient had coffee approx 2.5 hours ago today. Uses contraception 28435 004 Z30.8 Patient was educated on contracept ion options. Using condoms currently. Depression screening 171 392768 Z13.31 Depression screening done. Menorrhagia 717986834 N9 2.0 Had normal SIS. Encouraged OCPs, or to consider ablation if done child bearing. Recurrent urinary tract infection 500263243 N39.0 Vulvodynia 395357244 N94 .819 Discussed medication s for vulvodynea . will stay on 60 mg per day. [id number] SHEILA LEGER MD SHE2 [address] [place] [address] 02/09/2022 09:30:52 02/09/2022 10:11:38 Vulvodynia 739252753 N94.818 Discussed medication s for vulvodynea . Vulvitis 16339067 N76.2 slit in right side of clitoral skin. appears to be a small excoriatio n. Advised A&D ointment for a couple of weeks, and if no improvemen t, would try some nystatin ointment for 7-10 days to see if it heals. [id number] SHEILA LEGER MD SHE[address] [place] [address] 08/17/2022 14:34:21 08/17/2022 15:24:29 Gynecologic examination 04278959 Z01.411 BW to monitor meds. Patient had coffee approx 2.5 hours ago today.Marshall strauss BW with PCP. Advised to forward us a copy for review. Uses contraception 76004 004 Z30.8 Patient was educated on contracept ion options. Depression screening 171 435522 Z13.31 Depression screening done. Vulvodynia 573355519 N94 .818 Discussed medication s for vulvodynia . Doing well on 60 mg of amitriptyl ine per day.Wants to continue. F/u [id number] SHEILA LEGER MD SHE[address] [place] [address] 02/08/2023 08:57:57 02/08/2023 09:59:14 Vulvodynia 036336801 N94.818 Discussed medication s for vulvodynea . Menorrhagia 878650099 N9 2.0 Had normal SIS 02/2021. Tried OCPs but made her vulvodynea s symptoms worse. Advised to consider Cerene cryo- endometeri al ablation if done child bearing. Aware that she would need w/u including repeat SIS and EMBx if interested . Does not want to go back on hormonal control. Did not like the way she felt on it.Encount er time lasted (34 minutes) total with moderate decision making and which included the following times: reviewing chart/hist ory (4 minutes), patient exam (0 minutes), counseling patient (24 minutes); documentin g in patient record (5 minutes) ordering labs and/or Rx through pharmacy (1 minutes). Start time: 9:31 AM, Stop time: 10:05 AM. [id number] SHEILA LEGER MD [address] [place] [address] 09/06/2023 13:29:19 09/06/2023 15:17:37 Gynecologic examination 63751679 Z01.411 BW to monitor meds. Patient had coffee approx 2.5 hours ago today.Marshall strauss BW with PCP. Advised to forward us a copy for review. Uses contraception 03151 004 Z30.8 Patient was educated on contracept ion options. Depression screening 171 060775 Z13.31 Depression screening done. Candidal vulvovaginitis 22188265 B37.31 Phase contrast microscopi c evaluation reveals yeast.Will treat with Diflucan.P atient offered return visit for test of cure.With history of vulvodynea , would f/u in 4 weeks for a re-check. Vulvodynia 527318690 N94 .818 Discussed medication s for vulvodynea . Advised to continue with 60 mg of amitriptyl ine for now. [id number] SHEILA LEGER MD SHE2 [address] [facility] [address] [place] [address] 10/11/2023 11:02:24 10/11/2023 13:13:23 Vulvodynia 096485226 N94.818 Discussed medication s for vulvodynia . Advised to continue with 60 mg of amitriptyl ine but on week after menses will increase to 75 mg for 7-10 days. Advised f/u in 2 months. Idiopathic vulvodynia 23 904925 N94.818 [id number] ZANDER SCHWARTZ CNM SHE[address] [place] [address] 10/25/2023 10:51:37 10/25/2023 12:17:55 Muscular hypertonicity 93813981 R25.2 Long discussion with pt re: pelvic floor dysfunctio n, goals, concerns and how pain/dylan ers can be multifacto rial and need different approaches . Pt is open to Pelvic PT. Discussed findings on exam demonstrat ing different trigger points for pain. Also discussed possibilit y of vaginal Valium suppositor ies as an option. Pt has an appt with uro/button and buckle maker due to some bladder associated symptoms. She will move that to after initiation of PT to see if some of that might be alleviated . Pt will loop back with RDB as she begins this process. Reviewed normal US from 5 days ago. Reassured that no abnl findings.V isit: Chart review: 6 minHistory takin minPE: 9 minDiscuss ion/Treatm ent: 8 minChartin minTotal: 34 min Vulvodynia 860790472 N94 .819 Just started on 75mg of amitriptyl ine. In general feels like she has been ok w/amitript yline and is not sure if raising the dosing is doing anything yet. Pt will see how she feels in 3 - 4 weeks. Vaginal di scharge symptom 135727521 N89.8 Patient reassured that phase contrast microscopi c findings were normal. No yeast seen at this visit. [id number] SHEILA LEGER MD SHE2 [address] [place] [address] 02/28/2024 11:58:15 02/28/2024 15:32:06 Vulvodynia 284764675 N94.818 Discussed medication s for vulvodynia . Advised to continue with 60 mg of amitriptyl ine but on week after menses will increase to 75 mg for 7-10 days. has gone back down to 60 mg and only uses 75 mg dose for flares. Advised f/u in 6 months.Doi ng well with Pelvic floor Therapy. Advised to continue.S aw uro/button and buckle maker and offerred urethral dilation but now seems improved ([employer] dispute in beginning of year prevented patient from receiving care).Enco unter time lasted (33 minutes) total with moderate decision making and which included the following times: reviewing chart/hist ory (4minutes) , patient exam (3 minutes), counseling patient (21 minutes); documentin g in patient record (4 minutes) ordering labs and/or Rx through pharmacy (1 minutes). Start time: 12:01 PM, Stop time: 12:34 PM. Vaginal di scharge symptom [id number] N89.8 Patient reassured that phase contrast microscopi c findings were normal. [id number] SHEILA LEGER MD SHE[address] [place] [address] 09/18/2024 10:02:12 09/18/2024 11:27:55 Gynecologic examination [id number] Z01.411 BW to monitor meds. Patient had coffee approx 2.5 hours ago today.Marshall strauss BW with PCP. Advised to forward us a copy for review. Uses contraception [id number] Z30.8 Patient was educated on contracept ion options. Will remain on condoms. Depression screening [id number] Z13.31 Depression screening done. Vulvodynia [id number] N94 .818 Discussed medication s for vulvodynia . Patient was placed on tegretol for 2 weeks by neurologis t and advised to cut back to 40 mg of amitriptyl ine from 60mg.Will renew for now at 40 mg. when patient sees neurologis t for trigeminal neuralgia, will see what to do next (he may be stopping the tegretol). Menorrhagia [id number] N9 2.0 Had normal SIS 02/2021. Tried OCPs but made her vulvodynea s symptoms worse. Advised to consider Cerene cryo- endometeri al ablation if done child bearing. Aware that she would need w/u including repeat SIS and EMBx if interested . Does not want to go back on hormonal control. Did not like the way she felt on it.Patient also counseled on option of progestin coated IUD. Health Concerns Section Related Observation LastModified by Organization Detai ls LastModified Time None Recorded Concern Status LastModified by Organization Details LastModified Time None Recorded Advance Directives Directive None Recorded Payers Encounter Date Sequence Insurance Name Policy Number Policy Salas Covered Member ID Salas Member ID Guarantor Name 09/06/2023 1 [facility] [id number] Rahul Delacruz [id number] 2 Juany Delacruz 10/11/2023 1 [facility] [id number] Rahul Delacruz [id number] Juany Delacruz 10/25/2023 1 [facility] [id number] Rahul Delacruz [id number] 2 Juany Delacruz 02/28/2024 1 [facility] [id number] Rahul Delacruz [id number] 2 Juany Delacruz 09/18/2024 1 [facility] [id number] Rauhl Delacruz [id number] 2 Juany Delacruz Notes Date Note Type Note Provider Name and Address Organization Details Recorded Time 09/06/2023 text/html [facility] Annual GYNRe ported bypatient.Menstrual cycle:Normal menses Urinary symptoms:No hematuria; No incontinence Vulva:No genital lesion Vagina:Normal vaginal discharge; vaginal irritation Breast:No breast pain; No breast lump; No nipple discharge Current Contraception:[place] us relationship; Sexually active: high-risk behavior Sexual activity:sexually active yes ; No sexual complaints; No pain during intercourse; Normal libido; Requests testing for sexually transmitted infections (declines std testing today.) Psychological symptoms:No depression; No anxiety; No PMDD Preventive measures:Encourage self breast examination; Encourage regular exercise; Encourage no tobacco use; Followed with pap smear and high risk HPV typing every [facility] Vaginal DischargeReported bypatient.Location:vag delia Quality:clear; watery; increased quantity Severity:mild Onset/Timing:fluctuati ng; feels improved on menses and then flares up after. Context:premenopausal Modifying Factors:sometimes worse after ntercourse. Associated Symptoms:no vaginal burning; achy pelvis. Recent flu vaccine shot. 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 Possible flare upLMP:08/23/2023Sexuall y active no std testing today. SHEILA LEGER MD [address] [place] [address], [address] Floor, [place], [address], [place] [facility] 09/06/2023 14:41:48 10/11/2023 text/html [facility] Vaginal/Vulv ar ProblemReported bypatient.Location:vul va; vagina Onset/Timing:cyclic; after intercourse; persists for several days after sexual activity. 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 Quality:painful Severity:mild; improving Context:sexually active; condom use: yes Alleviating Factors:abstinence and amitriptyline. Aggravating Factors:intercourse; intercourse or touching. Associated Symptoms:no vaginal itching; no vaginal irritation; no vaginal pain; no vulvar itching/irritation; no vulvar swelling/erythema; no vulvar lesions; no pelvic pain; no dyspareunia; no dysuria; no fever; no abdominal pain;vulvar pain Pt is present for vulvodynia follow up w/RDB.Is taking 60 mg of amitriptyline Pt here for a follow up on vulvodyniaTaking 60mg amitriptyline qhs. As of today sx are okay. Pt c/o heavier menses since had twins. LMP:02/03/23 SHEILA LEGER MD [address] [facility], [address] [place] [address], [place], [phone], [facility] 10/11/2023 12:05:03 10/25/2023 text/html [facility] Pelvic PainReported bypatient.Location:cailin ateral; lower back Onset/Timin-4 weeks Duration:constant Quality:sharp; stabbing; aching; cramping Severity:mild; pain level 6/10 Context:LMP (10/20/2023) Alleviating Factors:Per Pt took Advil Aggravating Factors:intercourse Associated Symptoms:abdominal pain;back pain Pt present problem Visit w/ PMO Pt states had Pelvic exam w/RDB 10/11/2023 that week still having pelvic pain. Pt yesterday was the worst pain Pt had. Pt states this has been ongoing that whenever her internal pelvic structure is provoked (sex, bimanual exam, menses) than she can have lots of lower back, pelvic, and bladder pain. High dosis of Ibuprofen help but not very much. Started 75mg of Amitriptyline and feels like she doesn't yet know if better. Denies d/c, itching, odor. and pt rarely do anything because sex seems to also set it off. ZANDER SCHWARTZ CNM [address] [facility], [address] [place] [address], [phone], [facility] 10/25/2023 12:20:00 02/28/2024 text/html [facility] Vaginal/Vulv ar ProblemReported bypatient.Location:vul va; vagina Onset/Timing:cyclic; after intercourse; persists for several days after sexual activity. 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 Quality:painful Severity:mild; improving Context:sexually active; condom use: yes Alleviating Factors:abstinence and amitriptyline. Aggravating Factors:intercourse; intercourse or touching. Associated Symptoms:no vaginal itching; no vaginal irritation; no vaginal pain; no vulvar itching/irritation; no vulvar swelling/erythema; no vulvar lesions; no pelvic pain; no dyspareunia; no dysuria; no fever; no abdominal pain;vulvar pain Pt is present for vulvodynia follow up w/RDB.Is taking 60 mg of amitriptylineLMP: 02/12/2024 SHEILA LEGER MD [address] [facility], [address] [place] [address], [phone], [facility] 02/28/2024 12:36:47 09/18/2024 text/html [facility] Annual GYNRe ported bypatient.Menstrual cycle:Normal menses Urinary symptoms:No hematuria; No incontinence Vulva:No genital lesion Vagina:Normal vaginal discharge; vaginal irritation Breast:No breast pain; No breast lump; No nipple discharge Current Contraception:[place] us relationship; Sexually active: high-risk behavior Sexual activity:sexually active yes ; No sexual complaints; No pain during intercourse; Normal libido; Requests testing for sexually transmitted infections (declines std testing today.) Psychological symptoms:No depression; No anxiety; No PMDD Preventive measures:Encourage self breast examination; Encourage regular exercise; Encourage no tobacco use; Followed with pap smear and high risk HPV typing every [facility] Vaginal DischargeReported bypatient.Location:vag delia Quality:clear; watery; increased quantity Severity:mild Onset/Timing:fluctuati ng; feels improved on menses and then flares up after. Context:premenopausal Modifying Factors:sometimes worse after ntercourse. Associated Symptoms:no vaginal burning; achy pelvis. Recent flu vaccine shot. 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 Possible flare upLMP 08/22/2024 SHEILA LEGER MD [address] [place] [address], [address] [place] [address], [phone], [facility] 09/18/2024 11:14:09 OBGyn Episode Ob Episode Information Episode Created Date Number of Fetuses Patient Bloodtype Patient rh Status Prepregnancy Weight lbs Domestic Partner Domestic Partner Phone Father Name Instructor [employer] Status 08/17/20 22 2 CLOSED Fetus Data First Name Last Name Admitted to NICU Weight (g) Sex Living Outcome Pediatric Complications Fetus ID Race Codes Race Delivery Type 5.98 5704 F Prematur e [id number] 7 - Primary 1615.69 4704 F Prematur e [id number] 8 - Primary Sahil Calculation Initial Sahil Date Initial Exam Date Initial Exam Provider Initial Ultrasound Date Last Menstrual Period Date Ultra Sound Weeks Gestation 0 Eighteen To Twenty Week Sahil Update Ultra Sound Date Fundal Height At Umbil Quickening Date Ultra Sound Latest Weeks Gestation Final Sahil Confirmed By Final Sahil Confirmed Date Final Sahil Date Ultra Sound Latest Days Gestation 0 0 Menstrual History Last Menstrual Date Menses Monthly On Bcp Conception Prior Menses Frequency Hcg Plus Date Menarche Onset Age Delivery Information Delivery Date Delivery Type Labor Anesthesia Weeks Gestation Incision Type Labor Labor Length Hrs Delivered By Post Complications Tubal Sterilization Discharge Date Comments 9 Discharge Information Feeding Method Contraceptive Method Maternal HG B and HCT Levels
--- OUTSIDE RECORDS SUMMARY | 2024-12-18 13:04 | XMS_ITS | Continuity of Care Document ---
Author Organization [facility] Address [address] [facility], [address], [address] [place] [id number] Care Team Providers Care Plug Cutter Name Role Phone Adilia STEPHEN, Jareth Castellano Primary Care Physician Encounter [facility] Date(s): 11/03/24 - 12/03/24 [facility] [address] [facility] [address], [address] [place] [id number] [[email or web address]] Encounter Type: Triage Allergies, Adverse Reactions, Alerts Substance Criticality Severity Reaction Reaction Severity Status sulfADIAZINE Active Immunizations Given and Recorded Vaccine Date Status Refusal Reason Boostrix (Tdap) (oldterm) 11/21/18 Given influenza virus vaccine, inactivated 08/02/18 Charles rded tetanus-diphtheria toxoids (Td) 05/27/99 Given Medications amiTRIPTYLINE = 15 mg, By Mouth, Daily at bedtime, 0 Refills, Maintenance, 09/26/18 1:54:01 PM EST Start Date: 09/26/18 Status: Ordered Repeat number: 1 aspirin 81 mg oral delayed release tablet 81 mg, 1, tablet, By Mouth, Daily, # 30 tablet, Refills 0, Maintenance, 10/25/18 2:22:37 PM EST Start Date: 10/25/18 Status: Ordered Quantity: 30.0 Unit: tablet Repeat number: 1 docusate sodium 100 mg oral tablet 1 tablet = 100 mg, By Mouth, 2 times a day, PRN for constipation, # 60 tablet, 1 Refills, Maintenance, 11/21/18 1:35:31 PM EST, Tablet Start Date: 11/21/18 Status: Ordered Quantity: 60.0 Unit: tablet Repeat number: 2 Handheld Electric Breast Pump See Instructions, # 1 kit, Refills 0, Tot. Refills 0, Maintenance, DX : premature twins, 02/07/19 9:23:00 AM EDT, Compound Start Date: 02/07/19 Status: Ordered Quantity: 1.0 Unit: kit Repeat number: 1 Maternity support stockings Maternity support stockings, See Instructions, # 1 pair, Refills 0, Tot. Refills 0, Maintenance, Towear daily for lower extremity edema/pain in twin , 11/21/18 1:25:57 PM EST, Compound Start Date: 11/21/18 Status: Ordered Quantity: 1.0 Unit: pair Repeat number: 1 Multivitamin Tablet By Mouth, Daily, 0 Refills, Maintenance, 09/26/18 1:54:11 PM EST Start Date: 09/26/18 Status: Ordered Repeat number: 1 Splint See Instructions, # 1 application, Maintenance, Bilateral wrist splints for possible carpal tunnel assoc with , 11/21/18 1:22:58 PM EST, Compound Start Date: 11/21/18 Status: Ordered Quantity: 1.0 Unit: application Repeat number: 1 Problem List Condition Confirmation Course Effective Dates Status Health St [facility] Informant Anxiety disorder Confirmed Active Chemists-Dr. Garner Confirmed Active Headache disorder Confirmed Active Insomnia Confirmed Active IBS (irritable bowel syndrome) Confirmed Active twin to twin transfusion affecting management of mother in second trimester Confirmed Active Vulvodynia Confirmed Active Social History Social History Type Response Smoking Status Never (less than 100 in lifetime) entered on: 09/21/18 Sex Sex Representation Female (finding) Patient Care team information Care Team Personnel Name: Chantal Mendiola RN Position: [facility] OB RN Member Role: Primary Care Nurse Name: Jareth Pat MD Position: [facility] Physician - Primary Care Member Role: PCP Address: [address] [place] [address] Telecom: Care Team Related Persons Name: ERIK PERLA Name: JAME PERLA Name: BEVERLEY PERLA Name: LAWRENCE QUINN Name: MACKENZIE QUINN Name: SOPHIE QUINN Insurance Providers Guarantor name: BIBI QUINN Health Plan Information #: 1 [facility] Member Number: NA Policy Number: NA Group Number: NA
--- OUTSIDE RECORDS SUMMARY | 2024-12-18 13:04 | XMS_ITS | Clinical Summary ---
Author Organization [facility] Address [address] [place] [address] Care Team Providers Care Business Computers Teacher Name Role Phone Jareth Pat MD Primary Care Provider [phone] Allergies Active Allergy Reactions Criticality Noted Date Comments Sulfamethoxazole-Trimethoprim Hives 2017 Medications Medication Sig Dispensed Refills Start Date End Date Status tolterodine (DETROL LA) 2 MG 24 hr capsule Take 4 mg by mouth daily. 0 Active nitrofurantoin, macrocrystal-monohyd rate, (MACROBID) 100 MG capsule Take 1 capsule (100 mg total) by mouth daily. 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 Microscopic hematuria 01/21/2018 Urethritis 01/21/2018 Family History Relation Name Status Comments Father Alive Mother Alive Social History Tobacco Use Types Packs/Day Years Used Date Smoking Tobacco: Never Smokeless Tobacco: Never Alcohol Use Standard Drinks/Week Comments No 0 (1 standard drink = 0.6 oz pur e alcohol) occasionally, wine once a mth Sex and Gender Information Value Date Recorded Sex Assigned at Not on file Gender Identity Not on file Sexual Orientation Not on file Job Start Date Occupation Industry Not on file Not on file Not on file Last Filed Vital Signs Vital Sign Reading Time Taken Comments Blood Pressure 132/88 01/06/2018 1:10 PM EST Pulse 92 01/06/2018 1:10 PM EST Temperature 35.9 ??C (96.6 ??F) 12/10/2020 1:28 PM ES T Respiratory Rate - - Oxygen Saturation - - Inhaled Oxygen Concentration - - Weight 67.6 kg (149 lb) 01/06/2018 1:10 PM EST Height - - Body Mass Index - - Plan of Treatment Health Maintenance Due Date Last Done Comments Hepatitis B Vaccines (1 of 3 - 3-dose series) 1985 Hepatitis C Screening 1985 Depression Screening 1997 DTap / Tdap / Td (2 - Tdap) 05/28/1999 05/27/1999 Preventative Health Evaluation 2003 Cervical Cancer Screening (Pap Smear) 2006 COVID-19 Vaccine (2 - 2023-2 5 season) 2024 12/28/2020 Influenza Vaccine (#1) 2024 8, 08/02/2018 Pneumococcal Vaccine Aged Out No long er eligible based on patient's age to complete this topic RSV Ped < 20 months Aged Out No longe r eligible based on patient's age to complete this topic Care Teams Business Computers Teacher Relationship Specialty Start Date End Date Jareth Pat MD [address] [place] [address] PCP - General Internal Medicine 12/21/17
--- OUTSIDE RECORDS SUMMARY | 2024-12-18 13:04 | XMS_ITS | Clinical Summary ---
Author Organization [facility] it Address [address] [place] [address] Care Team Providers Care Process Server Name Role Phone Jareth Pat MD Primary Care Provider [phone] Surgical History Surgery Date Site/Laterality Comments OTHER SURGICAL HISTORY 2008 PROCEDURE: ---- OTHER ----; COMMENT: cryotherapy on cervix SECTION 2018 PROCEDURE: HISTORICAL ; COMMENT: twins with TTTS at 32 weeks, pre-eclampsia with severe features OTHER SURGICAL HISTORY N/A PROCEDURE:cervial cryo SECTION PROCEDURE: SECTION CYST REMOVAL PROCEDURE:CYST REMOVAL;COMMENT:scalp Medical History Medical History Date Comments IBS (irritable bowel syndrome) D X:IBS (irritable bowel syndrome) Overactive bladder DX:Overactive bladder; COMMENT: pt denies hx of this PCOS (polycystic ovarian syndrome) DX:PCOS (polycystic ovarian syndrome); COMMENT: pt denies hx of this Vulvodynia DX:Vulvodynia History of severe pre-eclampsia 2018 DX:History of severe pre-eclampsia; COMMENT: Twin delivery via for TTTS Vulvodynia DX:Vulvodynia Irritable bowel syndrome DX:Irri table bowel syndrome Family History Medical History Relation Name Comments No Known Problems Brother No Known Problems Father Other: bowel obstruction Maternal Grandfather Other: Alzhemiers Maternal Grandmother No Known Problems Mother No Known Problems Paternal Grandfather No Known Problems Paternal Grandmother Breast cancer Neg Hx Cervical cancer Neg Hx Ovarian cancer Neg Hx Uterine cancer Neg Hx Relation Name Status Comments Brother Alive Father Alive Maternal Grandfather Maternal Grandmother Mother Alive Paternal Grandfather Paternal Grandmother Social History Tobacco Use Types Packs/Day Years Used Date Smoking Tobacco: Never Smokeless Tobacco: Never Alcohol Use Standard Drinks/Week Comments No 0 (1 standard drink = 0.6 oz pur e alcohol) Sex and Gender Information Value Date Recorded Sex Assigned at Not on file Gender Identity Not on file Sexual Orientation Not on file Obstetrics History Plan of Treatment Health Maintenance Due Date Last Done Comments DTaP,Tdap,and Td Vaccines (1 - Tdap) 2004 Hepatitis B Vaccines (1 of 3 - 19+ 3-dose series) 2004 Cervical Cancer Screening: P ap Smear 2006 Depression Screening 10/17/2022 HIV Screening 10/17/2022 Hepatitis C Screening 10/17/2022 Social Influencers of Health Screening 10/17/2022 COVID-19 Vaccine (1 - 2023-2 5 season) 2024 Influenza Vaccine (#1) 2024 08/02/2018 Cholesterol Screening (Lipid Panel) 08/11/2026 08/11/2021, 08/11/2021 HPV Vaccines Completed 11/12/2009, 07/15/2009, 05/01/2009 HIB Vaccines Aged Out No longer eligi ble based on patient's age to complete this topic Hepatitis A Vaccines Aged Out No long er eligible based on patient's age to complete this topic IPV Vaccines Aged Out No longer eligi ble based on patient's age to complete this topic MMR Vaccines Aged Out No longer eligi ble based on patient's age to complete this topic Meningococcal ACWY Vaccine Aged Out N o longer eligible based on patient's age to complete this topic Pneumococcal Vaccine: Pediatrics (0 to 5 Years) and At-Risk Patients (6 to 64 Years) Aged Out No longer eligible b ased on patient's age to complete this topic RSV Immunization Patients Under 20 months Aged Out No longer eligible b ased on patient's age to complete this topic Varicella Vaccines Aged Out No longer eligible based on patient's age to complete this topic Care Teams Process Server Relationship Specialty Start Date End Date Jareth Pat MD [address] [place] [phone] PCP - General 03/26/08
[2024-12-18 13:08] LABS: Basophils Percent Auto 0.8 % (0-2); Eosinophils Absolute Auto 0.1 X10*3/uL (0.0-0.4); Eosinophils Percent Auto 1.9 % (0-4); Hemoglobin 14.1 g/dl (12.0-16.0); Imm Gran Abs Auto 0.01 X10*3/uL (0.00-0.03); Imm Gran Pct Auto 0.3 % (0.0-0.4); Lymphocytes Percent Auto 28.7 % (20-40); Mean Corpuscular HGB Conc 34.4 g/dl (31.0-35.0); Mean Corpuscular Hemoglobin 30.7 pg (27.0-33.0); Mean Corpuscular Volume 89.1 fL (80.0-98.0); Mean Platelet Volume 10.6 fL (9.4-12.3); Monocytes Absolute Auto 0.2 X10*3/uL (0.1-1.2); Monocytes Percent Auto 6.3 % (2-11); Neutrophils Absolute Auto 2.3 x10*3/uL (2.0-8.3); Platelet Count 197 X10*3/uL (160-400); Red Cell Distribution Width 13.1 % (11.0-16.0); White Blood Count 3.6 X10*3/uL (4.8-10.8)
[2024-12-18 13:46] LABS: Erythrocyte Sedimentation Rate 2 MM/HR (0-20)
[2024-12-18 14:52] LABS: Anion Gap 13 (12-20); Blood Urea Nitrogen 9 mg/dL (9-16); C Reactive Protein < 0.10 mg/dL (< or = 0.50); Carbon Dioxide 27 mmol/L (22-29); Chloride 104 mmol/L (96-108); Estimated Glomerular Filt Rate > 60; Glucose Random 94 mg/dL (60-115); Potassium 3.6 mmol/L (3.3-5.1); Sodium 140 mmol/L (135-145)
[2024-12-19 18:03] LABS: Lyme Abs Screen <0.90 index
== END 2024-12-18 11:45 | disposition home or self-care (01) ==
LOC: HO.XRAY 11:44
PROVIDERS: PCP Internal Medicine; Visit Provider Registered Nurse
DX: M54.2 Cervicalgia (principal); Z13.89 Encounter for screening for other disorder
CPT/HCPCS: 36415; 72040; 80048; 85025; 85652; 86140; 86617; 86618

== ENCOUNTER → 2024-12-18 11:46 | Outpatient (BNV) | payer OTHER, SELFPAY | PROVIDERS: PCP Internal Medicine; Visit Provider Radiology Diagnostic Radiology | DX: M54.2 Cervicalgia (principal) | CPT/HCPCS: 72040 ==